=== PATIENT | female | born 1950 | race Caucasian/White ===

== ENCOUNTER 2019-03-15 19:00 | Emergency (ER) | payer MEDICARE, BC ==
[~2019-03-15] VITALS: Ht 167.6 cm; Wt 68.0 kg
[~2019-03-15 19:00] MED LIST: ALLEGRA180 MG PO; LISINOPRIL20 MG PO; SIMVASTATIN40 MG PO; ZETIA10 MG PO
[2019-03-15] MEDS ORDERED: XARELTO20 MG PO (19:22)
[2019-03-15] MEDS ORDERED: HYDROCHLOROTHIA25 M2 PO (19:22)
[2019-03-15] MEDS ORDERED: ALENDRONATE SOD70 MG PO (19:23)
[2019-03-15] MEDS ORDERED: FLECAINIDE ACET50 M1 PO (19:23)
[2019-03-15] MEDS ORDERED: [UNRECOGNIZED DRUG - OTHER] (19:23)
[2019-03-15] MEDS ORDERED: JANUVIA100 MG PO (19:24)
[2019-03-15] MEDS ORDERED: MICARDIS 80 MG80 MG PO (19:24)
[2019-03-15] MEDS ORDERED: OMEPRAZOLE 20 M20 M1 PO (19:24)
[2019-03-15] MEDS ORDERED: ALLER-EASE180 MG PO (19:25)
[2019-03-15] MEDS ORDERED: SINGULAIR 10 MG10 M1 PO (19:25)
[2019-03-15] MEDS ORDERED: LIPITOR40 MG PO (19:25)
[2019-03-15] MEDS ORDERED: METFORMIN HCL500 MG PO (19:25)
[2019-03-15] MEDS ORDERED: LOPRESSOR50 PO (19:26)
[2019-03-15] MEDS ORDERED: WELCHOL 625 MG625 MG PO (19:26)
[2019-03-15] MEDS ORDERED: FENOFIBRATE160 MG PO (19:27)
[2019-03-15] MEDS ORDERED: BREO ELLIPTA 11 EACH (19:27)
[2019-03-15] MEDS ORDERED: VENTOLIN HFA 1818 GM INH (19:27)
[2019-03-15] MEDS ORDERED: TURMERIC500 M2 PO (19:28)
[2019-03-15] MEDS ORDERED: CENTRUM SILVER1 EAC2 PO (19:28)
[2019-03-15 19:57] LABS: ABSOLUTE EOSINOPHILS 0.2 thou/uL (0.0-0.7); ABSOLUTE LYMPHOCYTES 2.2 thou/uL (0.8-5.3); ABSOLUTE MONOCYTES 0.6 thou/uL (0.0-1.2); ABSOLUTE NEUTROPHILS 4.3 thou/uL (1.6-8.1); BASOPHILS 0.6 %; EOSINOPHILS 2.2 %; HEMATOCRIT 27.6 % (37.0-47.0); HEMOGLOBIN 9.4 gm/dL (12.0-15.0); LYMPHOCYTES 30.5 %; MCH 31.2 pg (26.0-34.0); MCHC 34.1 g/dL (28.0-37.0); MCV 91.5 fL (80.0-100.0); MONOCYTES 8.6 %; MPV 9.5 fl. (7.2-11.1); NUCLEATED RBCS 0 /100WBC; PLATELET COUNT* 217 thou/uL (150-400); POLYS 58.1 %; RBC 3.02 mil/uL (4.20-5.00); WBC 7.4 thou/uL (4.0-11.0)
[2019-03-15 20:02] LABS: CALCIUM 9.3 mg/dL (8.5-10.1); CREATININE 1.4 mg/dL (0.6-1.3); POTASSIUM 3.9 mmol/L (3.5-5.1)
[2019-03-15 20:03] LABS: INR 1.1; PROTIME 11.5 Seconds (9.20-11.50)
[2019-03-15 20:07] LABS: ALBUMIN 3.3 g/dL (3.4-5.0); TOTAL BILIRUBIN 0.4 mg/dL (<0.1-1.0); TOTAL PROTEIN 6.3 g/dL (6.4-8.2)
[2019-03-15 21:07] LABS: URINE BILIRUBIN NEGATIVE (Negative); URINE BLOOD 3+ (Negative); URINE CLARITY CLEAR; URINE COLOR YELLOW; URINE GLUCOSE-RANDOM NEGATIVE (Negative); URINE KETONES NEGATIVE (Negative); URINE LEUKOCYTES-REFLEX TRACE (Negative); URINE NITRITE-REFLEX NEGATIVE (Negative); URINE PROTEIN TRACE (Negative); URINE UROBILINOGEN 0.2 E.U./dl (0.2-1.0)
[2019-03-15 22:05] LABS: HYALINE CASTS 0-3 Few /LPF (None Seen); SQUAMOUS 4-10 Moderate /LPF (0-3)
[2019-03-15 22:06] LABS: URINE WBC-REFLEX 0-5 Rare /HPF (0-5)
[2019-03-15 22:07] LABS: BACTERIA-REFLEX >30 Many /HPF (None Seen); CRYSTALS None Seen /LPF (None Seen); URINE RBC 3-10 Few /HPF (0-2)
[2019-03-15 23:36] VITALS: BP 144/66
--- NOTE | 2019-03-16 12:34 | EKG ---
[place] [address] ELECTROCARDIOGRAM REPORT Name: CASEY CIFUENTES Room: [facility]#: [id number] Admission: 03/15/19 Attend Phys: Discharge: 03/15/19 Date of : 52 Report #: [id number] THIS REPORT FOR: //name// [facility] ED Test Date: 2019-03-15 Test Time: 19:22:21 Pat Name: CASEY CIFUENTES Department: Room: Gender: F Registered Representative: [place] : 1950 Requested By: Usha Anderson Order Number: [id number] MD: Fuentes Diego Measurements Intervals [place] Rate: 62 P: 52 SD: 155 QRS: -34 QRSD: 146 T: -16 QT: 474 QTc: 482 Interpretive Statements Sinus rhythm Right bundle branch block Probable left ventricular hypertrophy Compared to ECG 06/07/2008 10:03:08 Right bundle-branch block now present Sinus bradycardia no longer present Electronically Signed On 03-16-2019 12:34:32 CDT by Fuentes Diego [email or web address] <ELECTRONICALLY SIGNED> By: Fuentes Diego MD, [facility] 03/16/19 1234 1922 192 Fuentes Diego MD, [facility] /EPI
== END 2019-03-15 23:45 | disposition short-term general hospital (02) ==
LOC: M.ERS 19:00
PROVIDERS: Emergency Medicine
DX: K92.1 Melena (principal); I10 Essential (primary) hypertension; R42 Dizziness and giddiness; E78.00 Pure hypercholesterolemia, unspecified; Z88.6 Allergy status to analgesic agent